=== PATIENT | female | born 1980 | race Two or more races ===

== ENCOUNTER 2020-06-30 09:09 | Emergency (ER) | payer MEDICAID, SELFPAY ==
[2020-06-30 09:17] VITALS: BP 125/85; PULSE 90; RESP 16; TEMP 36.8; O2SAT 97; BMI 36.9
--- NOTE | 2020-06-30 09:19 | XR_ITS ---
EXAMINATION: XR CHEST CLINICAL INFORMATION: Cough. COMPARISON: None TECHNIQUE: Frontal view of the chest was obtained. FINDINGS: No significant abnormality is noted involving the heart, lungs, mediastinum, bony thorax or soft tissues. XR/XR chest 1V IMPRESSION: Unremarkable chest exam.
--- NOTE | 2020-06-30 09:37 | ED.URI ---
HPI - URI/Sore Throat General Chief Complaint: Upper Respiratory Symptoms Stated Complaint: COUGH Time Seen by Provider: 06/30/20 09:19 Source: patient Mode of arrival: ambulatory Limitations: no limitations History of Present Illness HPI Narrative: 39 y/o female with history of asthma is presenting with acute onset of non-productive cough that started last night. No other symptoms. No exposure to COVID-19. No fever, chills, SOB, difficultly breathing. She states she ran out of her inhaler medications at home. MD elicited complaint: cough Onset (ago): day(s) (1) Consistency: intermittent Severity: moderate Able to tolerate fluids by mouth: Yes Exacerbating factors: exertion Relieving factors: nothing Treatments prior to arrival: none Related Data Previous Rx's Medication Instructions Recorded albuterol sulfate 1 inh INHALATION QID PRN #6.7 g 06/30/20 azithromycin [Zithromax Z-Richy] See Rx Instructions .ROUTE 06/30/20 .COMPLEX #6 tab benzonatate [Tessalon Perles] 100 mg PO TID PRN #20 cap 06/30/20 prednisone 40 mg PO DAILY #10 tab 06/30/20 Allergies Allergy/AdvReac Type Severity Reaction Status Date / Time No Known Allergies Allergy Unverified 02/18/20 19:42 [No Known Allergies*] Review of Systems Review of Systems: Constitutional: No Fever, No Chills ENT/Mouth: No sore throat, No Rhinorrhea, No Swallowing Difficulty Eyes: No Eye Pain, No Swelling, No Redness Cardiovascular: No Chest Pain, No SOB, No Orthopnea, No Edema Respiratory: + Cough, No Sputum, No Wheezing, No dyspnea Gastrointestinal: No Nausea, No Vomiting, No Diarrhea, No abdominal Pain, No Hematochezia, No Melena Genitourinary: No Dysuria, No Urinary Frequency, No Hematuria Musculoskeletal: No joint pain, No Myalgias Skin: No Skin Lesions, No rash Neuro: No Weakness, No Numbness, No Dizziness, No Headache Psych: No Anxiety/Panic, No Depression Heme/Lymph: No Bruising, No Lymphadenopathy Endocrine: No Polyuria, No Polydipsia PMFSH Past Medical History Attestation statement: The following information was validated with the patient. Medical History Asthma Social History Social History Advance Directives: No Advance Directives Information Provided: No Physical Exam Vital Signs: Vital Signs: Last Vital Signs Temp 98.3 F 06/30/20 09:17 Pulse 90 06/30/20 09:17 Resp 16 06/30/20 09:17 BP 125/85 06/30/20 09:17 Pulse Ox 97 06/30/20 09:17 Body Mass Index 36.9 Appearance: Alert. Oriented X3. No acute distress. Eyes: Pupils equal, round and reactive to light. ENT: Pharynx normal. Neck: Normal inspection. Neck supple. CVS: Normal heart rate and rhythm. Pulses normal. Respiratory: No respiratory distress. Mild end expiratory wheeze in left upper lobe. No rhonchi Abdomen: Soft and nontender. +BS x4 Skin: Skin warm and dry. Normal skin color. Normal skin turgor. No rashes. Extremities: No lower extremity edema. Neuro: Oriented X 3. No motor deficit. No sensory deficit. Course Course Course Narrative: 39 y/o female with history of asthma presenting with cough. No hypoxia or resp distress. Mild wheezing on exam in [facility] - will check CXR and Resp panel. Reevaluation(s) Reevaluation #1: COVID-19 POSITIVE. Spo2 97%, no respiratory distress. Will treat with steroids and azithromycin given her hx of asthma and wheeze on exam. She has been counseled on management and warning signs to prompt return to the ER. She is stable for discharge. MDM - URI/Sore Throat Lab Data Labs: Lab Results 06/30/20 Range/Units 09:31 Coronavirus (PCR) POSITIVE A (Negative) Influenza Type A (PCR) NEGATIVE (Negative) Influenza Type B (PCR) NEGATIVE (Negative) RSV RNA Qual (PCR) NEGATIVE (Negative) Discharge Plan Discharge Clinical Impression: COVID-19 Patient Disposition: Home, Self-Care Instructions: COVID-19 (Coronavirus Disease 2019) (ED) Additional Instructions: You were found to be COVID-19 POSITIVE today. Your chest x-ray and oxygen levels were normal. Rest. Drink plenty of fluids. Do not go out in public for the next 10-14 days. Take over the counter cold/flu medications as needed for your symptoms. Take the prescribed medications as directed for your lungs/asthma. Take Tylenol and/or Motrin as needed for fevers and body aches. Follow up with your doctor this week. If you shortness of breath worsens , if you develop difficulty breathing or any other concerning symptom come back to the ER for further evaluation. Prescriptions: New azithromycin [Zithromax Z-Richy] 250 mg tablet See Rx Instructions .ROUTE .COMPLEX Qty: 6 RF: 0 prednisone 20 mg tablet 40 mg PO DAILY Qty: 10 RF: 0 albuterol sulfate 90 mcg/actuation HFA aerosol inhaler 1 inh inhalation QID PRN (Reason: shortness of breath or wheezing) Qty: 6.7 RF: 0 benzonatate [Tessalon Perles] 100 mg capsule 100 mg PO TID PRN (Reason: cough) Qty: 20 RF: 0 Stand Alone Forms: Work/School Release Print Language: Chinese
[2020-06-30 10:17] LABS: Influenza A PCR NEGATIVE (Negative); Influenza B PCR NEGATIVE (Negative); Resp Syncy Virus RNA Qual PCR NEGATIVE (Negative); SARS COV2 PCR INHOUSE POSITIVE (Negative)
== END 2020-06-30 11:06 | disposition home or self-care (01) ==
PROVIDERS: Physician Assistant; Emergency Provider Emergency Medicine
DX: U07.1 COVID-19 (principal); J45.909 Unspecified asthma, uncomplicated
CPT/HCPCS: 0241U; 36415; 71045; 99282; 99283

== ENCOUNTER 2020-09-21 20:21 | Emergency (ER) | payer MEDICAID, SELFPAY ==
--- NOTE | ~2020-09-21 | XR_ITS ---
EXAMINATION: XR CHEST CLINICAL INFORMATION: Cough COMPARISON: None TECHNIQUE: Frontal view of the chest was obtained. FINDINGS: No significant abnormality is noted involving the heart, lungs, mediastinum, bony thorax or soft tissues. XR/XR chest 1V IMPRESSION: Unremarkable examination.
[2020-09-21 20:45] VITALS: BP 124/80; PULSE 97; RESP 16; TEMP 36.8; O2SAT 97; BMI 38.0
--- NOTE | 2020-09-21 21:40 | ED_ITS ---
HPI - URI/Sore Throat General Chief Complaint: Upper Respiratory Symptoms Stated Complaint: SOB/Back pain Source: patient Mode of arrival: ambulatory Limitations: no limitations History of Present Illness HPI Narrative: 39-year-old female with no significant past medical history presents with 1 day of upper respiratory symptoms and requesting COVID-19 testing. MD elicited complaint: cough Onset (ago): day(s) (1) Consistency: constant Severity: mild Able to tolerate fluids by mouth: Yes Context: sick contacts Associated symptoms: denies other symptoms Treatments prior to arrival: none Related Data Previous Rx's Medication Instructions Recorded albuterol sulfate 1 inh INHALATION QID PRN #6.7 g 06/30/20 azithromycin [Zithromax Z-Richy] See Rx Instructions .ROUTE 06/30/20 .COMPLEX #6 tab benzonatate [Tessalon Perles] 100 mg PO TID PRN #20 cap 06/30/20 prednisone 40 mg PO DAILY #10 tab 06/30/20 Allergies Allergy/AdvReac Type Severity Reaction Status Date / Time No Known Allergies Allergy Verified 09/21/20 20:53 [No Known Allergies*] Review of Systems Review of Systems: Constitutional: No Fever, no Chills, positive fatigue, no Malaise ENT/Mouth: No sore throat, now runny nose Eyes: No Discharge Cardiovascular: No Chest Pain, No SOB Respiratory: Positive Cough, No Sputum, No Wheezing, No Smoke Exposure, No Dyspnea Gastrointestinal: No Nausea, No Vomiting, No Diarrhea Genitourinary: no irregular bleeding, No Dysuria, No Urinary Frequency, No Hematuria, No Urinary Incontinence, No Urgency, No Flank Pain, Musculoskeletal: positive Myalgia Skin: No rash Neuro: No Headache Yes all other systems are reviewed and are negative [facility] Past Medical History Attestation statement: The following information was validated with the patient. Source: old records reviewed Medical History Asthma Social History Social History Advance Directives: No Advance Directives Information Provided: No Physical Exam Vital Signs: Vital Signs: Last Vital Signs Temp 98.3 F 09/21/20 20:45 Pulse 97 09/21/20 20:45 Resp 16 09/21/20 20:45 BP 124/80 09/21/20 20:45 Pulse Ox 97 09/21/20 20:45 Body Mass Index 38.0 Appearance: Alert. Oriented X3. No acute distress. Eyes: Pupils equal, round and reactive to light. ENT: Pharynx normal. Neck: Normal inspection. Neck supple. CVS: Normal heart rate and rhythm. Pulses normal. Respiratory: No respiratory distress. Breath sounds normal. Abdomen: Soft and nontender. Skin: Skin warm and dry. Normal skin color. Normal skin turgor. Extremities: No lower extremity edema. Neuro: No motor deficit. No sensory deficit. Course Course Course Narrative: 39-year-old female presents with 1 day of upper respiratory symptoms requesting COVID-19 testing. Chest x-rays negative for acute findings, COVID test is negative. Results discussed with patient. Patient verbalized understanding of and agrees to plan of care discharge home. 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 MDM - URI/Sore Throat Differential Diagnosis Differential diagnosis: Likely upper respiratory infection, viral infection, in fluenza and pharyngitis Medical Records Attestation: I reviewed the patient's medical records. Lab Data Attestation: I reviewed the patient's lab results. Labs: Lab Results 09/21/20 Range/Units 21:45 Coronavirus (PCR) NEGATIVE (Negative) Influenza Type A (PCR) NEGATIVE (Negative) Influenza Type B (PCR) NEGATIVE (Negative) RSV RNA Qual (PCR) NEGATIVE (Negative) Imaging Data Chest x-ray: Attestation: I personally reviewed and interpreted this imaging study as follows: Radiologist's impression: EXAMINATION: XR CHEST CLINICAL INFORMATION: Cough COMPARISON: None TECHNIQUE: Frontal view of the chest was obtained. FINDINGS: No significant abnormality is noted involving the heart, lungs, mediastinum, bony thorax or soft tissues. XR/XR chest 1V IMPRESSION: Unremarkable examination. Discharge Plan Discharge Clinical Impression: COVID-19, Upper respiratory infection Patient Disposition: Home, Self-Care Instructions: Upper Respiratory Infection (ED), Cold Symptoms (ED) Additional Instructions: Se le evaluaron para detectar s?ntomas consistentes con COVID-19. Tu prueba fue negativa. La radiograf?a de t?rax fue negativa para los hallazgos agudos que requirieron leesa intervenci?n emergente. Anna por elegir mira departamento de emergencias para clark evaluaci?n. Por favor, ronald un seguimiento con el m?dico de atenci?n primaria seg?n sea nece sario. Regrese al servicio de emergencias para cualquier s?ntoma nuevo, preocupante o que empeore. You were evaluated for symptoms consistent with COVID-19. Your test was negative. Your chest x-ray was negative for acute findings requiring emergent intervention. Thank you for choosing this emergency department for evaluation. Please follow-up with primary care physician as needed. Return to the emergency department for any new, concerning, or worsening symptoms. Prescriptions: No Action azithromycin [Zithromax Z-Richy] 250 mg tablet See Rx Instructions .ROUTE .COMPLEX Qty: 6 RF: 0 prednisone 20 mg tablet 40 mg PO DAILY Qty: 10 RF: 0 albuterol sulfate 90 mcg/actuation HFA aerosol inhaler 1 inh inhalation QID PRN (Reason: shortness of breath or wheezing) Qty: 6.7 RF: 0 benzonatate [Tessalon Perles] 100 mg capsule 100 mg PO TID PRN (Reason: cough) Qty: 20 RF: 0 Interventions: ED Discharge Assessment Last Done: 09/21/20 23:47 Discharge Date/Time: 09/21/20 23:47
[2020-09-21 22:28] LABS: Influenza A PCR NEGATIVE (Negative); Influenza B PCR NEGATIVE (Negative); Resp Syncy Virus RNA Qual PCR NEGATIVE (Negative); SARS COV2 PCR INHOUSE NEGATIVE (Negative)
== END 2020-09-21 23:47 | disposition home or self-care (01) ==
PROVIDERS: Emergency Provider Emergency Medicine Emergency Medical Services
DX: U07.1 COVID-19 (principal); R06.02 Shortness of breath; Z79.899 Other long term (current) drug therapy
CPT/HCPCS: 0241U; 36415; 71045; 99283

== ENCOUNTER 2021-05-07 03:37 | Emergency (ER) | payer MEDICAID, SELFPAY ==
--- NOTE | ~2021-05-07 | XR_ITS ---
EXAMINATION: XR CHEST CLINICAL INFORMATION: Congestion COMPARISON: None TECHNIQUE: Frontal view of the chest was obtained. FINDINGS: Normal symmetric lung volumes. No parenchymal consolidation. No pleural effusion. No pneumothorax. Cardiomediastinal silhouette and pulmonary vascularity are within normal limits. No acute osseous abnormalities. XR/XR chest 1V IMPRESSION: Unremarkable examination.
--- NOTE | ~2021-05-07 | CT_ITS ---
EXAMINATION: CT SOFT TISSUE NECK WITHOUT CONTRAST CLINICAL INFORMATION: Pain under chin COMPARISON: None TECHNIQUE: Helical imaging was performed in the axial plane with generation of coronal and sagittal reformatted images. This CT examination was performed using dose optimization techniques as appropriate, variously including the following: *Automated exposure control *Adjustment of mA and/or kV according to patient size (this includes techniques or standardized protocols for targeted exams where dose is matched to indication/reason for exam; i.e. extremities or head) *Use of iterative reconstruction technique DLP: 621 mGy-cm FINDINGS: Mildly prominent nonpathologically enlarged submental lymph nodes measure up to 9 mm.. No cervical adenopathy is identified. The parotid glands are homogeneous in attenuation. The submandibular glands are normal. No contour abnormality or pathologic enhancement is seen within the oral cavity or pharyngeal mucosal space. The laryngeal structures are normal. The parapharyngeal fat is preserved. The carotid sheath vasculature opacify normally. No extra mucosal soft tissue mass or fluid collection is seen. No retropharyngeal fluid collection is seen. The thyroid gland is normal. The superior mediastinum is unremarkable. The lung apices are clear. The mastoid air cells and visualized portions of the paranasal sinuses are well-aerated. The temporomandibular joints are normal. No periapical disease is identified. No osseous abnormalities are seen. The imaged portions of the brain parenchyma are unremarkable. CT/CT soft tissue neck wo con IMPRESSION: Mildly prominent hyperemic lymph nodes present in the submental region, presumably reactive. No evidence of deep space infection within the neck. No drainable collections.
[2021-05-07 03:41] VITALS: BP 136/94; PULSE 99; RESP 20; TEMP 36.7; O2SAT 100; BMI 46.2
[2021-05-07 04:18] LABS: COVID-19 Test Negative (Negative)
--- NOTE | 2021-05-07 05:59 | ED_ITS ---
HPI - General Adult General Chief complaint: Upper Respiratory Symptoms Stated complaint: flu symptoms Time Seen by Provider: 05/07/21 05:54 Source: patient Mode of arrival: ambulatory Limitations: no limitations History of Present Illness HPI narrative: Patient comes to the emergency room complaining of congestion and fever for the last 2 days. Patient states that she has noticed that the bottom part of her hernandez is getting very swollen and very tender. Patient denies pain on the sides of her neck. Related Data Previous Rx's Medication Instructions Recorded albuterol sulfate 90 mcg/actuation 1 inh INHALATION QID PRN #6.7 g 06/30/20 aerosol inhaler azithromycin 250 mg tablet See Rx Instructions .ROUTE 06/30/20 (Zithromax Z-Richy) .COMPLEX #6 tab benzonatate 100 mg capsule 100 mg PO TID PRN #20 cap 06/30/20 (Tessalon Perles) prednisone 20 mg tablet 40 mg PO DAILY #10 tab 06/30/20 fexofenadine 60 mg tablet (Nadiya 60 mg PO BID #14 tab 05/07/21 Allergy) fluticasone propionate 50 1 spray INTRANASAL BID #16 g 05/07/21 mcg/actuation nasal spray,suspension (Flonase Allergy Relief) Allergies Allergy/AdvReac Type Severity Reaction Status Date / Time No Known Allergies Allergy Verified 09/21/20 20:53 [No Known Allergies*] Review of Systems Review of Systems: Constitutional : No Weight loss, No Fever, No Chills, No Night Sweats, No Fatigue, No Malaise ENT/Mouth : No Hearing loss, No Ear Pain, No Nasal Congestion, No Sinus Pain, No Hoarseness, complains sore throat, No Rhinorrhea, No Swallowing Difficulty, complains of swelling under the chin Eyes: No Eye Pain, No Swelling, No Redness, No Foreign Body, No Discharge, No Vision Changes Cardiovascular : No Chest Pain, No SOB, No Dyspnea on Exertion, No Orthopnea, No Edema, No Palpitations Respiratory : No Cough, No Sputum, No Wheezing, No Smoke Exposure, No Dyspnea Gastrointestinal : No Nausea, No Vomiting, No Diarrhea, No Constipation, No abdominal Pain, No Hematochezia, No Melena Genitourinary : no irregular bleeding, No Dysuria, No Urinary Frequency, No Hematuria, No Urinary Incontinence, No Urgency, No Flank Pain, No Urinary Flow Changes, No Hesitancy Musculoskeletal : No joint pain, No Myalgias, No Joint Swelling Skin : No Skin Lesions, No rash Neuro : No Weakness, No Numbness, No Paresthesias, No Loss of Consciousness, No Dizziness, No Headache Psych : No Anxiety/Panic, No Depression, No SI/HI/AH/VH, No Social Issues, Heme/Lymph: No Bruising, No Bleeding,No Lymphadenopathy Endocrine : No Polyuria, No Polydipsia, No Temperature Intolerance [facility] Past Medical History Medical History Asthma Social History Social History Advance Directives: No Advance Directives Information Provided: Yes Patient : No Physical Exam Vital Signs: Vital Signs: Last Vital Signs Temp 97.6 F 05/07/21 06:00 Pulse 82 05/07/21 06:00 Resp 16 05/07/21 06:00 BP 115/76 05/07/21 06:00 Pulse Ox 100 05/07/21 06:00 BMI result Body Mass Index 46.2 Const: Other: Appearance: Alert. Oriented X3. No acute distress. Eyes: Pupils equal, round and reactive to light. ENT: Pharynx normal. Oropharynx within normal limits, no edema. Soft tissue edema in the chin Neck: Normal inspection. Neck supple. No lymph nodes noted. No crepitus CVS: Normal heart rate and rhythm. Pulses normal. Normal S1 and S2 Respiratory: No respiratory distress. Breath sounds normal. No Wheezing. No rales Abdomen: Soft and nontender. No rigidity. No distention. good BS x4 Skin: Skin warm and dry. Normal skin color. Normal skin turgor. Extremities: No lower extremity edema. No lower extremity edema. No Lacerations. No Rash Neuro: Oriented X 3. No motor deficit. No sensory deficit. Moving all extermities. No slurred speech. Course Course Course Narrative: CT of the neck soft tissue pending CT of the neck shows no adenopathy. Likely reactive. Medical Decision Making Lab Data Labs: Lab Results 05/07/21 05/07/21 Range/Units 03:48 06:24 COVID-19 (RICHARD) Negative (Negative) COVID-19 Clin Com See Note S. pyogenes GrpA DEXTER Negative (Negative) Imaging Data Soft tissue CT: Radiologist's impression: FINDINGS: Mildly prominent nonpathologically enlarged submental lymph nodes measure up to 9 mm.. No cervical adenopathy is identified. The parotid glands are homogeneous in attenuation. The submandibular glands are normal. No contour abnormality or pathologic enhancement is seen within the oral cavity or pharyngeal mucosal space. The laryngeal structures are normal. The parapharyngeal fat is preserved. The carotid sheath vasculature opacify normally. No extra mucosal soft tissue mass or fluid collection is seen. No retropharyngeal fluid collection is seen. The thyroid gland is normal. The superior mediastinum is unremarkable. The lung apices are clear. The mastoid air cells and visualized portions of the paranasal sinuses are well-aerated. The temporomandibular joints are normal. No periapical disease is identified. No osseous abnormalities are seen. The imaged portions of the brain parenchyma are unremarkable. CT/CT soft tissue neck wo con IMPRESSION: Mildly prominent hyperemic lymph nodes present in the submental region, presumably reactive. No evidence of deep space infection within the neck. No drainable collections. Discharge Plan Discharge Clinical Impression: Upper respiratory infection, Reactive lymphadenopathy Patient Disposition: Home, Self-Care Instructions: Upper Respiratory Infection (ED) Additional Instructions: Please follow-up with your primary care physician tomorrow. If you have any worsening or new symptoms, please return to the emergency room or call 911 Prescriptions: New fluticasone propionate [Flonase Allergy Relief] 50 mcg/actuation spray,suspension 1 spray intranasal BID Qty: 16 RF: 0 fexofenadine [Nadiya Allergy] 60 mg tablet 60 mg PO BID Qty: 14 RF: 0 No Action azithromycin [Zithromax Z-Richy] 250 mg tablet See Rx Instructions .ROUTE .COMPLEX Qty: 6 RF: 0 prednisone 20 mg tablet 40 mg PO DAILY Qty: 10 RF: 0 albuterol sulfate 90 mcg/actuation HFA aerosol inhaler 1 inh inhalation QID PRN (Reason: shortness of breath or wheezing) Qty: 6.7 RF: 0 benzonatate [Tessalon Perles] 100 mg capsule 100 mg PO TID PRN (Reason: cough) Qty: 20 RF: 0
[2021-05-07 06:00] VITALS: BP 115/76; PULSE 82; RESP 16; TEMP 36.4; O2SAT 100
--- NOTE | 2021-05-07 06:25 | PC.NURSE ---
Pt resting in recliner in NAD, breathing with ease on RA, VSS. Pt speaking in complete, clear sentences, managing secretions. Pt tested for strep, sent for processing. Pt awaiting lab results and CT.
[2021-05-07 06:45] LABS: IDNOW Serial# 9DD0AD1C; Strep A Nucleic Acid Negative (Negative)
== END 2021-05-07 07:31 | disposition home or self-care (01) ==
PROVIDERS: Emergency Provider Emergency Medicine
DX: J06.9 Acute upper respiratory infection, unspecified (principal); R59.1 Generalized enlarged lymph nodes; J45.909 Unspecified asthma, uncomplicated; Z20.822 Contact with and (suspected) exposure to COVID-19
CPT/HCPCS: 36415; 70490; 71045; 87635; 87651; 99284

== ENCOUNTER 2022-02-20 21:04 | Emergency (ER) | payer MEDICAID, SELFPAY ==
[2022-02-20 21:32] VITALS: BP 171/98; PULSE 84; RESP 18; TEMP 36.7; O2SAT 98; BMI 41.5
== END 2022-02-21 02:17 | disposition left against medical advice (07) ==
PROVIDERS: Emergency Provider Emergency Medicine
DX: R10.9 Unspecified abdominal pain (principal)
CPT/HCPCS: 99281

== ENCOUNTER 2022-02-22 04:22 | Emergency (ER) | payer MEDICAID, SELFPAY ==
[2022-02-22 04:34] VITALS: BP 125/93; PULSE 72; RESP 16; TEMP 36.6; O2SAT 97; BMI 41.5
== END 2022-02-22 06:00 | disposition left against medical advice (07) ==
PROVIDERS: Emergency Provider Emergency Medicine
DX: K08.89 Other specified disorders of teeth and supporting structures (principal)
CPT/HCPCS: 99281

== ENCOUNTER 2022-07-28 10:51 | Emergency (ER) | payer MEDICAID, SELFPAY ==
[2022-07-28 10:55] VITALS: BP 128/86; PULSE 100; RESP 20; TEMP 36.1; O2SAT 100; BMI 39.4
[2022-07-28 11:21] LABS: MANUAL DIFF FLAG NO
[2022-07-28 11:24] LABS: Basophils Percent Auto 0.3 % (0-2); Eosinophils Absolute Auto 0.1 X10*3/uL (0.0-0.4); Eosinophils Percent Auto 1.3 % (0-4); Hematocrit 38.2 % (37.0-47.0); Hemoglobin 12.8 g/dl (12.0-16.0); Imm Gran Abs Auto 0.04 X10*3/uL (0.00-0.03); Imm Gran Pct Auto 0.4 % (0.0-0.4); Lymphocytes Absolute Auto 1.5 X10*3/uL (1.2-4.9); Lymphocytes Percent Auto 14.7 % (20-40); Mean Corpuscular HGB Conc 33.5 g/dl (31.0-35.0); Mean Corpuscular Hemoglobin 27.7 pg (27.0-33.0); Mean Corpuscular Volume 82.7 fL (80.0-98.0); Mean Platelet Volume 9.8 fL (9.4-12.3); Monocytes Absolute Auto 0.5 X10*3/uL (0.1-1.2); Monocytes Percent Auto 4.6 % (2-11); Neutrophils Percent Auto 78.7 % (45-73); Platelet Count 390 X10*3/uL (160-400); Red Blood Count 4.62 X10*6/uL (4.20-5.50); Red Cell Distribution Width 13.2 % (11.0-16.0); White Blood Count 10.2 X10*3/uL (4.8-10.8)
[2022-07-28 11:29] LABS: UPreg QC Valid YES; Urine Pregnancy NEGATIVE (NEGATIVE)
[2022-07-28 11:30] LABS: Color Urine Yellow; Glucose Urine UA Negative (Negative); Leukocyte Esterase Urine Negative (Negative); Nitrite Urine Negative (Negative); Specific Gravity - Urine 1.025 (1.005-1.025); UMIC TRIGGER UACC YES; Urine Blood Large (3+) (Negative); Urine Ketones Negative (Negative); Urine Protein 100 (2+) mg/dL (Neg-Trace)
[2022-07-28 11:31] LABS: Appearance Urine Clear
[2022-07-28 11:34] LABS: COVID-19 Test Negative (Negative); IDNOW Serial# 16C4AD1C
[2022-07-28 11:54] LABS: Bacteria Urine Trace (None Seen); Granular Casts Urine Present; WBC Urine 0-5 /HPF (0-5)
[2022-07-28 12:18] LABS: Anion Gap 12 (12-20); Blood Urea Nitrogen 7 mg/dL (9-16); Calcium 8.8 mg/dL (8.4-10.2); Carbon Dioxide 24 mmol/L (22-29); Chloride 107 mmol/L (96-108); Creatinine Clr Calc Pharmacy 108.7; Estimated Glomerular Filt Rate > 60; Glucose Random 100 mg/dL (60-115); Potassium 3.7 mmol/L (3.3-5.1); Sodium 139 mmol/L (135-145)
[2022-07-28 13:59] LABS: Alanine Aminotransferase 30 U/L (0-31); Alkaline Phosphatase 115 U/L (39-117); Aspartate Amino Transferase 24 U/L (5-31); Bilirubin Direct < 0.2 mg/dL (0.0-0.5); Bilirubin Total 0.2 mg/dL (0.0-1.0); Lipase 17 U/L (8-78); Total Protein 7.7 g/dL (6.5-8.0)
== END 2022-07-28 15:15 | disposition left against medical advice (07) ==
LOC: HO.ED 15:07
PROVIDERS: Nurse Practitioner Family; Emergency Provider Emergency Medicine
DX: R10.31 Right lower quadrant pain (principal); R11.10 Vomiting, unspecified; Z20.822 Contact with and (suspected) exposure to COVID-19
CPT/HCPCS: 80048; 80076; 81001; 81025; 83690; 85025; 87635; 99282; 99283

== ENCOUNTER 2024-05-12 10:11 | Outpatient (REF) | payer MEDICAID, SELFPAY ==
[2024-05-12 11:50] LABS: MANUAL DIFF FLAG NO
[2024-05-12 11:56] LABS: Basophils Absolute Auto 0.1 X10*3/uL (0.0-0.2); Basophils Percent Auto 0.9 % (0-2); Eosinophils Absolute Auto 0.1 X10*3/uL (0.0-0.4); Eosinophils Percent Auto 0.9 % (0-4); Hematocrit 39.3 % (37.0-47.0); Hemoglobin 13.1 g/dl (12.0-16.0); Imm Gran Abs Auto 0.03 X10*3/uL (0.00-0.03); Imm Gran Pct Auto 0.4 % (0.0-0.4); Lymphocytes Absolute Auto 1.4 X10*3/uL (1.2-4.9); Lymphocytes Percent Auto 20.3 % (20-40); Mean Corpuscular HGB Conc 33.3 g/dl (31.0-35.0); Mean Corpuscular Hemoglobin 29.1 pg (27.0-33.0); Mean Corpuscular Volume 87.3 fL (80.0-98.0); Mean Platelet Volume 12.2 fL (9.4-12.3); Monocytes Absolute Auto 0.3 X10*3/uL (0.1-1.2); Monocytes Percent Auto 3.9 % (2-11); Neutrophils Absolute Auto 5.1 x10*3/uL (2.0-8.3); Neutrophils Percent Auto 73.6 % (45-73); Platelet Count 315 X10*3/uL (160-400); Red Cell Distribution Width 13.1 % (11.0-16.0)
[2024-05-12 12:13] LABS: Anion Gap 12 (12-20); Blood Urea Nitrogen 9 mg/dL (9-16); Calcium 9.6 mg/dL (8.4-10.2); Carbon Dioxide 25 mmol/L (22-29); Chloride 105 mmol/L (96-108); Cholesterol 168 mg/dL (<200); Estimated Glomerular Filt Rate > 60; Glucose Random 87 mg/dL (60-115); HDL Cholesterol 38 mg/dL (>40); LDL Cholesterol Calculated 106 mg/dL (<100); Potassium 4.2 mmol/L (3.3-5.1); Sodium 138 mmol/L (135-145); Triglycerides 121 mg/dL (<150)
[2024-05-12 12:43] LABS: Vitamin B12 575 pg/mL (200-900)
[2024-05-12 13:09] LABS: Microalbum/Creatinine Ratio Ur 27.5 ug/mg cr (<30)
[2024-05-14 15:22] LABS: Anti Nuclear Antibody Screen NEGATIVE (NEGATIVE)
[2024-05-14 16:08] LABS: Anti DNA DS Antibody <1 IU/mL; SM/Ribonucleoprotein Ab <1.0 NEG AI (<1.0 NEG); Smith Protein <1.0 NEG AI (<1.0 NEG)
[2024-05-18 11:09] LABS: Complement C3 151 mg/dL (83-193)
== END 2024-05-12 10:12 | disposition home or self-care (01) ==
LOC: HO.HHCL 10:11
PROVIDERS: Visit Provider Nurse Practitioner Primary Care
DX: R21 Rash and other nonspecific skin eruption (principal); E11.65 Type 2 diabetes mellitus with hyperglycemia
CPT/HCPCS: 36415; 80048; 80061; 82043; 82570; 82607; 85025; 86038; 86160; 86225; 86235